=== PATIENT | male | born 1995 | race Asian ===

== ENCOUNTER 2018-11-14 12:16 | Emergency (ER) | payer OTHER ==
[~2018-11-14] VITALS: Ht 185.4 cm; Wt 77.1 kg
== END 2018-11-14 17:27 | disposition home or self-care (01) ==
LOC: ER 12:16
DX: B34.9 Viral infection, unspecified (principal); R11.11 Vomiting without nausea; R23.3 Spontaneous ecchymoses; J11.1 Influenza due to unidentified influenza virus with other respiratory manifestations